=== PATIENT | female | born 1980 | race Caucasian/White ===

== ENCOUNTER 2022-04-18 11:34 | Emergency (ER) | payer MEDICAID ==
[~2022-04-18] VITALS: Ht 175.3 cm; Wt 72.6 kg
--- NOTE | 2022-04-18 11:45 | NUR ---
BIB 878 FROM HOME C/O LOWER BACK PAIN THAT STARTED LAST NIGHT, PT HAS HX OF SCOLIOSIS, PAIN IS 3/10 AND INCREASES TO 9/10 WHEN TRYING TO GET UP
--- NOTE | 2022-04-18 12:15 | NUR ---
waiver signed by patient
[2022-04-18] MEDS: HYDROMORPHONE 1 MG/1 ML DISP.SYRIN IM ONE (12:30)
[2022-04-18] MEDS: KETOROLAC TROMETHAMINE INJ 60 MG/2 ML VIAL IM ONE (12:30)
[2022-04-18] MEDS ORDERED: KETOROLAC TROMETHAMINE INJ 30 MG/ML VIAL ONE (12:40)
[2022-04-18] MEDS ORDERED: HYDROMORPHONE 1 MG/1 ML DISP.SYRIN ONE (12:41)
[2022-04-18] MEDS ORDERED: HYDR-4303 PO (13:01)
--- NOTE | 2022-04-18 15:00 | NUR ---
Patient discharged to home in stable condition. Written and verbal after care instructions given. Patient verbalizes understanding of instruction.
[2022-04-18 15:02] VITALS: BP 141/81
[2022-04-18] MEDS ORDERED: CYCL5TAB PO (15:43)
[2022-04-18] MEDS ORDERED: ACET-2605 PO (15:44)
[2022-04-19] MEDS ORDERED: ACET-2605 PO (12:52)
[2022-04-19] MEDS ORDERED: CYCL5TAB PO (12:52)
[2022-04-19] MEDS ORDERED: HYDR-4303 PO (12:52)
[2022-04-19] MEDS ORDERED: HYDR-3976 PO (16:43)
== END 2022-04-18 15:02 | disposition home or self-care (01) ==
LOC: ER 11:38
DX: M54.50 Low back pain, unspecified (principal)
CPT/HCPCS: 99284; 96372 ×2; 82962 ×2; J1885; J1170